=== PATIENT | female | born 1955 | race African-American/Black ===

== ENCOUNTER 2020-11-11 18:53 | Inpatient (IN) | payer OTHER ==
[~2020-11-11] VITALS: Ht 167.6 cm; Wt 113.4 kg
[2020-11-11] MEDS ORDERED: IPRATROPIUM BROMIDE (0.02%) 0.5MG/2.5ML NEB HHN STA (18:59)
[2020-11-11] MEDS ORDERED: MAGNESIUM 2 G PREMIX 50 ML IV ONE (19:00)
[2020-11-11] MEDS ORDERED: METHYLPREDNISOLONE SOD SUCC 125 MG/2 ML VIAL IV ONE (19:15)
[2020-11-11 19:55] LABS: BASOPHILS % 0.9 % (0.0-2.0); EOSINOPHILS % 8.4 % (0.0-5.0); HEMATOCRIT. 41.9 % (36.0-48.0); HEMOGLOBIN. 13.7 g/dL (12.0-16.0); LYMPHOCYTES % 12.5 % (20.0-50.0); MEAN CORPUSCULAR VOLUME 88.9 fL (81.0-99.0); MEAN PLATELET VOLUME 9.1 fl (7.4-10.4); MONOCYTES % 5.9 % (2.0-8.0); NEUTROPHILS % 72.3 % (40.0-76.0); PLATELET 242 x1000/uL (130-400); RED BLOOD CELL COUNT 4.71 mill/uL (4.2-5.4); RED CELL DISTRIBUTION WIDTH 16.3 % (11.6-14.6)
[2020-11-11] MEDS ORDERED: NITROGLYCERIN OINT 1GM/INCH UDPKT TD NR (20:00)
[2020-11-11] MEDS ORDERED: DOXYCYCLINE 100MG in DEXTROSE 5% WATER 100ML IV NR (20:00)
[2020-11-11] MEDS ORDERED: CEFTRIAXONE 1 G PREMIX 50 ML IV ONE (20:00)
[2020-11-11] MEDS ORDERED: DOXYCYCLINE HYCLATE 100 MG/VIAL IV ONE (20:00)
[2020-11-11 20:02] LABS: CHLORIDE 103 mEq/L (98-107)
[2020-11-11] MEDS: ALBUTEROL (0.083%) 2.5MG/3ML NEB HHN SCH ×3 (20:05→21:05)
[2020-11-11] MEDS ORDERED: FUROSEMIDE 40MG/4ML VIAL IVP ONE (20:45)
[2020-11-11] MEDS ORDERED: NITROGLYCERIN 50MG PREMIX 250 ML IV ONE ×2 (21:45→22:00)
[2020-11-11] MEDS ORDERED: MAGNESIUM/ALUMINUM HYDROXIDE/SIMETHICONE 30ML UDC PO PRN (23:15)
[2020-11-11] MEDS ORDERED: LEVOFLOXACIN 500MG PREMIX 100 ML IV SCH (23:15)
[2020-11-11] MEDS ORDERED: CLONIDINE 0.1MG TABLET PO PRN (23:15)
[2020-11-11] MEDS: IPRATROPIUM/ALBUTEROL 0.5-3(2.5)MG/3ML NEB HHN SCH (23:15)
[2020-11-11] MEDS ORDERED: ONDANSETRON HCL 4MG/2ML INJ IV PRN (23:15)
[2020-11-11] MEDS ORDERED: DOCUSATE SODIUM 100MG CAPSULE PO PRN (23:15)
[2020-11-11] MEDS ORDERED: ACETAMINOPHEN 325MG TABLET PO PRN (23:15)
[2020-11-11] MEDS ORDERED: ENOXAPARIN 40MG/0.4ML SYR SUBCUT SCH (23:15)
[2020-11-11] MEDS ORDERED: HYDROMORPHONE HCL/PF 2MG/ML CPJ IV PRN (23:15)
[2020-11-11] MEDS ORDERED: IPRATROPIUM/ALBUTEROL 0.5-3(2.5)MG/3ML NEB HHN PRN (23:15)
[2020-11-11] MEDS ORDERED: NALOXONE HCL 0.4MG/ML VIAL IV PRN (23:45)
[2020-11-12] VITALS (58 sets, daily range): BP systolic 100–168; BP diastolic 57–120
[2020-11-12] MEDS: AMLODIPINE 10MG TABLET PO SCH ×2 (01:01→08:57)
[2020-11-12] MEDS: LISINOPRIL 40MG TABLET PO SCH ×2 (01:01→11:57)
[2020-11-12] MEDS: ENOXAPARIN 30MG/0.3ML SYR SUBCUT SCH ×3 (01:08→23:14)
[2020-11-12] MEDS: IPRATROPIUM/ALBUTEROL 0.5-3(2.5)MG/3ML NEB HHN SCH ×4 (05:15→22:00)
[2020-11-12] MEDS: ASPIRIN 81MG EC TABLET PO SCH (08:57)
[2020-11-12] MEDS ORDERED: FUROSEMIDE 40MG/4ML VIAL IV SCH (09:00)
[2020-11-12] MEDS ORDERED: POTASSIUM CHLORIDE 20MEQ TABLET SR PO NR (10:00)
[2020-11-12 10:02] LABS: BG BASE EXCESS 6.7 mmol/L (-2.0-2.0); BG CARBOXYHEMOGLOBIN 0.3 % (0.5-1.5); BG FRACTION INSPIRED OXYGEN 50; BG METHEMOGLOBIN 0.2 % (0.0-1.5); BG OXYHEMOGLOBIN 98.5 % (94.0-97.0); BG PCO2 67.7 mmHg (35.0-45.0); BG PH 7.331 (7.350-7.450); BG PO2 141.6 mmHg (75.0-100.0); BG SAMPLE SITE LEFT BRACHIAL; BG TOTAL HEMOGLOBIN 13.7 g/dL (12.0-18.0); BG VENT MODE MASK - BIPAP
[2020-11-12] MEDS: SPIRONOLACTONE 25MG TABLET PO SCH (11:56)
[2020-11-12] MEDS: METHYLPREDNISOLONE SOD SUCC 125 MG/2 ML VIAL IV SCH ×2 (11:57→18:08)
[2020-11-12 16:29] LABS: CHLORIDE 100 mEq/L (98-107)
[2020-11-12 16:37] LABS: LDL CHOLESTEROL 98 mg/dL (5-100)
[2020-11-12 16:38] LABS: CREATINE KINASE 98 IU/L (26-192); HDL CHOLESTEROL 66 mg/dL (40-59)
[2020-11-12 16:59] LABS: HEMATOCRIT. 38.5 % (36.0-48.0); HEMOGLOBIN. 13.1 g/dL (12.0-16.0); MEAN CORPUSCULAR HEMOGLOBIN 30.1 pg (28.0-32.0); MEAN CORPUSCULAR VOLUME 88.6 fL (81.0-99.0); PLATELET 194 x1000/uL (130-400); RED BLOOD CELL COUNT 4.34 mill/uL (4.2-5.4); RED CELL DISTRIBUTION WIDTH 16.2 % (11.6-14.6)
[2020-11-12] MEDS: ACETYLCYSTEINE 100MG/ML 10% VIAL 4ML INH SCH (17:10)
[2020-11-12] MEDS: FUROSEMIDE 40MG/4ML VIAL IV SCH (18:07)
[2020-11-12] MEDS: ISOSORBIDE DINITRATE 10MG TABLET PO SCH (18:07)
[2020-11-12 20:33] LABS: PLATELET ESTIMATE NORMAL
[2020-11-12] MEDS: GUAIFENESIN 200MG/10ML SUGAR FREE UDC PO PRN (23:14)
[2020-11-13] VITALS (13 sets, daily range): BP systolic 113–151; BP diastolic 65–89
[2020-11-13] MEDS: ACETYLCYSTEINE 100MG/ML 10% VIAL 4ML INH SCH ×3 (01:06→16:38)
[2020-11-13] MEDS: IPRATROPIUM/ALBUTEROL 0.5-3(2.5)MG/3ML NEB HHN SCH ×6 (01:07→20:08)
[2020-11-13] MEDS: METHYLPREDNISOLONE SOD SUCC 125 MG/2 ML VIAL IV SCH ×3 (02:02→17:51)
[2020-11-13] MEDS: LEVOFLOXACIN 750MG PREMIX 150 ML IV SCH (02:02)
[2020-11-13] MEDS: FUROSEMIDE 40MG/4ML VIAL IV SCH ×2 (05:45→17:51)
[2020-11-13] MEDS: GUAIFENESIN 200MG/10ML SUGAR FREE UDC PO PRN ×2 (05:45→18:37)
[2020-11-13] MEDS: SPIRONOLACTONE 25MG TABLET PO SCH (08:19)
[2020-11-13] MEDS: LISINOPRIL 40MG TABLET PO SCH (08:20)
[2020-11-13] MEDS: AMLODIPINE 10MG TABLET PO SCH (08:20)
[2020-11-13] MEDS: ISOSORBIDE DINITRATE 10MG TABLET PO SCH ×2 (08:20→17:51)
[2020-11-13] MEDS: ASPIRIN 81MG EC TABLET PO SCH (08:20)
[2020-11-13] MEDS: ENOXAPARIN 30MG/0.3ML SYR SUBCUT SCH (11:05)
[2020-11-13] MEDS: HYDRALAZINE HCL 10MG TABLET PO SCH ×2 (15:20→21:54)
[2020-11-14] VITALS (12 sets, daily range): BP systolic 117–150; BP diastolic 56–97
[2020-11-14] MEDS: ENOXAPARIN 30MG/0.3ML SYR SUBCUT SCH ×3 (00:15→22:37)
[2020-11-14] MEDS: LEVOFLOXACIN 750MG PREMIX 150 ML IV SCH (00:17)
[2020-11-14] MEDS: IPRATROPIUM/ALBUTEROL 0.5-3(2.5)MG/3ML NEB HHN SCH ×6 (00:17→21:26)
[2020-11-14] MEDS: ACETYLCYSTEINE 100MG/ML 10% VIAL 4ML INH SCH ×4 (00:17→16:28)
[2020-11-14] MEDS: METHYLPREDNISOLONE SOD SUCC 125 MG/2 ML VIAL IV SCH ×3 (02:55→17:44)
[2020-11-14] MEDS: FUROSEMIDE 40MG/4ML VIAL IV SCH ×2 (06:09→17:44)
[2020-11-14] MEDS: HYDRALAZINE HCL 10MG TABLET PO SCH ×3 (06:10→22:37)
[2020-11-14] MEDS: ASPIRIN 81MG EC TABLET PO SCH (08:02)
[2020-11-14] MEDS: SPIRONOLACTONE 25MG TABLET PO SCH (08:18)
[2020-11-14] MEDS: ISOSORBIDE DINITRATE 10MG TABLET PO SCH ×2 (08:18→17:45)
[2020-11-14] MEDS: AMLODIPINE 10MG TABLET PO SCH (08:18)
[2020-11-14] MEDS: LISINOPRIL 40MG TABLET PO SCH (08:18)
[2020-11-14 11:22] LABS: HEMATOCRIT. 39.3 % (36.0-48.0); HEMOGLOBIN. 13.1 g/dL (12.0-16.0); MEAN CORPUSCULAR HEMOGLOBIN 29.4 pg (28.0-32.0); MEAN PLATELET VOLUME 9.3 fl (7.4-10.4); PLATELET 275 x1000/uL (130-400); RED BLOOD CELL COUNT 4.47 mill/uL (4.2-5.4)
[2020-11-14 11:55] LABS: CHLORIDE 101 mEq/L (98-107)
[2020-11-14 12:48] LABS: PLATELET ESTIMATE NORMAL
[2020-11-14] MEDS: GUAIFENESIN 200MG/10ML SUGAR FREE UDC PO PRN (15:08)
[2020-11-15] VITALS (7 sets, daily range): BP systolic 134–155; BP diastolic 67–94
[2020-11-15] MEDS: LEVOFLOXACIN 750MG PREMIX 150 ML IV SCH (01:38)
[2020-11-15] MEDS: METHYLPREDNISOLONE SOD SUCC 125 MG/2 ML VIAL IV SCH ×2 (01:38→11:36)
[2020-11-15] MEDS: IPRATROPIUM/ALBUTEROL 0.5-3(2.5)MG/3ML NEB HHN SCH ×4 (02:00→12:32)
[2020-11-15] MEDS: ACETYLCYSTEINE 100MG/ML 10% VIAL 4ML INH SCH ×2 (02:00→08:58)
[2020-11-15] MEDS: FUROSEMIDE 40MG/4ML VIAL IV SCH (06:06)
[2020-11-15] MEDS: HYDRALAZINE HCL 10MG TABLET PO SCH (06:06)
[2020-11-15] MEDS: SPIRONOLACTONE 25MG TABLET PO SCH (08:26)
[2020-11-15] MEDS: ISOSORBIDE DINITRATE 10MG TABLET PO SCH (08:26)
[2020-11-15] MEDS: ASPIRIN 81MG EC TABLET PO SCH (08:26)
[2020-11-15] MEDS: AMLODIPINE 10MG TABLET PO SCH (08:26)
[2020-11-15] MEDS: LISINOPRIL 40MG TABLET PO SCH (08:26)
[2020-11-15] MEDS: ENOXAPARIN 30MG/0.3ML SYR SUBCUT SCH (11:36)
[2020-11-16] MEDS ORDERED: FUROSEMIDE 40MG/4ML VIAL IV SCH (09:00)
== END 2020-11-15 13:52 | disposition home or self-care (01) | DRG 280 ==
LOC: ER 18:53 → MICUSO 22:26 → ENRESERV 11-12 03:05 → 3WST 11-12 22:51
PROVIDERS: ADMIT Hospitalist; ATTEND Hospitalist
PROC: 5A09357 Assistance with Respiratory Ventilation, Less than 24 Consecutive Hours, Continuous Positive Airway Pressure (ICD-10-PCS; principal; 2020-11-11)
PROC: 5A09357 Assistance with Respiratory Ventilation, Less than 24 Consecutive Hours, Continuous Positive Airway Pressure (ICD-10-PCS; 2020-11-12)
DX: I11.0 Hypertensive heart disease with heart failure (principal); I21.A1 Myocardial infarction type 2; J96.01 Acute respiratory failure with hypoxia; J44.1 Chronic obstructive pulmonary disease with (acute) exacerbation; I16.1 Hypertensive emergency; J84.9 Interstitial pulmonary disease, unspecified; E44.1 Mild protein-calorie malnutrition; Z68.41 Body mass index [BMI] 40.0-44.9, adult; I50.33 Acute on chronic diastolic (congestive) heart failure; E87.6 Hypokalemia; E66.9 Obesity, unspecified; Z20.822 Contact with and (suspected) exposure to COVID-19; F12.90 Cannabis use, unspecified, uncomplicated; F17.210 Nicotine dependence, cigarettes, uncomplicated; G47.33 Obstructive sleep apnea (adult) (pediatric); Z88.5 Allergy status to narcotic agent; Z71.6 Tobacco abuse counseling; Z99.81 Dependence on supplemental oxygen; Z91.19 Patient's noncompliance with other medical treatment and regimen
CPT/HCPCS: 36415; 36600; 71045; 80048; 80053; 80061; 82375; 82550; 82805; 83735; 83880; 84484; 85025; 93005; 93306; 93970; 94640; 94660; 99291; J0696; J1650; J1940; J1956; J2930; J3475; J3490; J7060; J7608; U0003; U0005